=== PATIENT | female | born 1945 | race Caucasian/White ===

== ENCOUNTER 2022-01-30 19:31 | Emergency (ER) | payer MEDICARE, BC | END 2022-01-30 20:45 | disposition home or self-care (01) | LOC: LB.ED 19:31 → SUPCPDRO 19:31 → LB.ED 20:45 | DX: S01.01XA Laceration without foreign body of scalp, initial encounter (principal); W01.0XXA Fall on same level from slipping, tripping and stumbling without subsequent striking against object, initial encounter | CPT/HCPCS: 12002; 99282 ==